=== PATIENT | female | born 1985 | race Caucasian/White ===

== ENCOUNTER 2021-05-28 11:19 | Outpatient (RCR) | payer OTHER, SELFPAY | END 2021-06-13 23:59 | disposition home or self-care (01) | LOC: CHSWOUND 11:19 | PROVIDERS: PCP Family Medicine | DX: T81.31XA Disruption of external operation (surgical) wound, not elsewhere classified, initial encounter (principal); T81.89XA Other complications of procedures, not elsewhere classified, initial encounter; C50.919 Malignant neoplasm of unspecified site of unspecified female breast | CPT/HCPCS: 11042; 11045; 87070; 87075; 87147; 87205; 99213; G0463 ==